=== PATIENT | male | born 1950 | race Caucasian/White ===

== ENCOUNTER 2016-09-17 00:04 | Emergency (ER) | payer MEDICARE, OTHER ==
[~2016-09-17] VITALS: Ht 180.3 cm; Wt 86.2 kg
[~2016-09-17 00:04] MED LIST: ATIVAN1 MG PO; CRUTCH1 EACH; ULTRAM50 MG PO
[2016-09-17] MEDS ORDERED: ATIVAN1 MG PO (02:25)
== END 2016-09-17 07:20 | disposition home or self-care (01) ==
LOC: ED 00:04
DX: F10.129 Alcohol abuse with intoxication, unspecified (principal); F17.200 Nicotine dependence, unspecified, uncomplicated; Y90.8 Blood alcohol level of 240 mg/100 ml or more; Z59.0 Homelessness
CPT/HCPCS: 80053; 81001; 83735; 85025; 96360; 96361; 99283; G0480; J7030

== ENCOUNTER 2023-10-19 15:01 | Emergency (ER) | payer MEDICARE, OTHER ==
[~2023-10-19] VITALS: Ht 180.3 cm; Wt 84.5 kg
[2023-10-19] MEDS ORDERED: INDOMETHACIN25 MG PO (15:25)
[2023-10-19] MEDS ORDERED: GABAPENTIN300 MG PO (15:26)
--- OUTSIDE RECORDS SUMMARY | 2023-10-19 16:33 | XMS ---
PreManage Notification: ELIAN KRAUS Security [employer] T[employer] Events No recent Security Events currently on file CRITERIA MET - 6 ED Visits in 6 Months - Group Notification - [facility] - 2 Visits in 30 Days - [facility] - 3 Facilities in 90 Days CARE PROVIDERS -, [facility] [place]: Dental Current Dental PHONE: [phone] -Radha DDS Dentist Current PHONE: [phone] D[facility]/Center: [facility] ([facility]) PHONE: [phone] JONATAN CORDOBA Nurse Practitioner: Family Current PHONE: [phone] Kaya has no Care Guidelines for this patient. Jossie VISIT COUNT (12 MO.) 5 [facility] ([facility]) 1 ROBINSON Carvalho 1 Matteo Baldwin (Jojo ) TOTAL 7 NOTE: Visits indicate total known visits. ED/UCC VISIT TRACKING (12 MO.) [facility] COMPLAINT: - THROAT PAIN 10/12/2023 16:02 Matteo Lennonreginaldo LelandNayana EDMONDS OR ([facility]) TYPE: Emergency DIAGNOSES: - Acute laryngitis - Sore Throat - Throat Swelling 10/09/2023 10:49 [facility] [place]: [place] DIAGNOSES: - Acute cystitis without hematuria - Sciatica, right side - back pain 09/28/2023 13:29 [facility] ([place]) TYPE: Emergency DIAGNOSES: - Encounter for issue of repeat prescription - Wedge compression fracture of second thoracic vertebra, initial encounter for closed fracture - Wedge compression fracture of second thoracic vertebra, subsequent encounter for fracture with routine healing - Back Pain - lt shoulder inj, pain 09/26/2023 10:44 [facility] ([facility] Juares) TYPE: Emergency DIAGNOSES: - Fall on same level from slipping, tripping and stumbling without subsequent striking against object, initial encounter - Hematuria, unspecified - Hypo-osmolality and hyponatremia - Strain of muscle and tendon of unspecified wall of thorax, initial encounter - Strain of muscle, fascia and tendon at neck level, initial encounter - Unspecified injury of head, initial encounter - Urinary tract infection, site not specified - Wedge compression fracture of second thoracic vertebra, initial encounter for closed fracture - Back Injury - Fall - fall, head injury 07/25/2023 18:07 [facility] ([place]) TYPE: Emergency DIAGNOSES: - Gout, unspecified - Hand Swelling - poss gout 07/24/2023 19:33 [facility] ([place]) TYPE: Emergency DIAGNOSES: - Hypomagnesemia - Low back pain, unspecified - Repeated falls - Weakness - Back Pain - Dizziness - lt hand numbness, gout - lt hand numbness, gout, back pain, dizzy - Wrist Pain INPATIENT VISIT TRACKING (12 MO.) No inpatient visits to display in this time frame [email or web address]
[2023-10-19] MEDS ORDERED: ACETAMINOPHEN 500 MG TAB PO ONE (18:00)
[2023-10-19 18:05] VITALS: BP 00/00
== END 2023-10-19 18:03 | disposition other institution, planned readmission (95) ==
LOC: ED 15:01
DX: F22 Delusional disorders (principal); J44.9 Chronic obstructive pulmonary disease, unspecified; J04.0 Acute laryngitis; F15.10 Other stimulant abuse, uncomplicated; F17.200 Nicotine dependence, unspecified, uncomplicated; Z79.899 Other long term (current) drug therapy; Z53.21 Procedure and treatment not carried out due to patient leaving prior to being seen by health care provider
CPT/HCPCS: 80307; 99283